=== PATIENT | male | born 1985 | race African-American/Black ===

== ENCOUNTER 2019-03-02 18:09 | Emergency (ER) | payer OTHER ==
[~2019-03-02] VITALS: Ht 165.1 cm; Wt 65.8 kg
[2019-03-02] MEDS ORDERED: NKM (18:28)
--- NOTE | 2019-03-02 19:14 | NUR ---
HAND-OFF: Report given to Aniceto TRAN.
[2019-03-02 19:37] VITALS: BP 124/66
--- NOTE | 2019-03-02 19:38 | NUR ---
ED Nurse Note: Patient walked in to ER c/o skin rash, right knee pain 02/20. AAO x4, VSS at this time.
--- NOTE | 2019-03-02 19:42 | Emergency Room Report ---
History of Present Illness General Chief Complaint: Skin Rash/Abscess Source: Patient Present Illness HPI 33 YO male presents to the ED c/o having several infected pimples or bug bites on his body, with most significant being just above his right knee. he reports itchy pimple-like bumps that have erythema and warmth. Pt. denies fevers or chills. Pt. reports lesions are tender 10/10 in severity. He denies pain with ROM or inability to range the right knee. Pt. denies fevers, chills or swollen tender lymph nodes. Denies lesions/rashes elsewhere on the body. Denies new medications or body washes or creams. Denies swelling of the lips, tongue , throat or airway. Denies wheezing, or shortness of breath. Denies recent travel , recent illness or ill contacts. denies blisters, oral lesions, or sloughing of the skin. Pt. reports he has been "couch" surfing lately. Denies joint pain , malaise or hx of recent STI. pt. denies immune compromise. Allergies: Coded Allergies: No Known Allergies (Unverified , 03/02/19) Patient History Past Medical History: see triage record Past Surgical History: none Pertinent Family History: none Reviewed Nursing Documentation: PMH: Agreed; PSxH: Agreed Nursing Documentation-PMH Past Medical History: No History, Except For Review of Systems All Other Systems: negative except mentioned in HPI Physical Exam Vital Signs Date Time Temp Pulse Resp B/P (MAP) Pulse Ox O2 Delivery O2 Flow Rate FiO2 03/02/19 18:25 98.2 84 16 124/66 (85) 98 Room Air Sp02 EP Interpretation: reviewed, normal General Appearance: no apparent distress, alert, GCS 15, non-toxic Head: normocephalic, atraumatic Eyes: bilateral eye normal inspection, bilateral eye PERRL ENT: hearing grossly normal, normal voice Neck: full range of motion Respiratory: chest non-tender, lungs clear, normal breath sounds, no respiratory distress, no accessory muscle use, no wheezing, speaking full sentences Cardiovascular #1: regular rate, rhythm Musculoskeletal: back normal, gait/station normal, normal range of motion, non- tender, other - local infected insect bite just overlying the upper lateral side of the right knee with tenderness, pustule and surrounding erythema. the erythema is not generalized over the right knee, no pain with ROM just with palpation of the erythematous lesion. mild localized swelling that does not appear to involve the knee joint, is not circumferential and spares the left anteriomedial, and posterior aspect of the knee. Neurologic: alert, oriented x3, responsive, motor strength/tone normal, sensory intact, normal gait, speech normal, grossly normal Psychiatric: judgement/insight normal Skin: normal color, warm/dry, well hydrated, other - pt. has a total of 4 pustules with surrounding erythema. the pustules are no larger than 0.5mm in size. the largest being overlying the proximal lateral aspect of the right knee. Lymphatic: no adenopathy Medical Decision Making PA Attestation Dr. Falk is my supervising Physician whom patient management has been discussed with. Diagnostic Impression: Primary Impression: Insect bites of multiple sites, infected Additional Impression: Skin pustule ER Course 33 YO male presents to the ED c/o having several infected pimples or bug bites on his body, with most significant being just above his right knee. he reports itchy pimple-like bumps that have erythema and warmth. Pt. denies fevers or chills. Pt. reports lesions are tender 10/10 in severity. He denies pain with ROM or inability to range the right knee. Pt. denies fevers, chills or swollen tender lymph nodes. Denies lesions/rashes elsewhere on the body. Denies new medications or body washes or creams. Denies swelling of the lips, tongue , throat or airway. Denies wheezing, or shortness of breath. Denies recent travel , recent illness or ill contacts. denies blisters, oral lesions, or sloughing of the skin. Pt. reports he has been "couch" surfing lately. Denies joint pain , malaise or hx of recent STI. pt. denies immune compromise. Ddx considered but are not limited to cellulitis, staph infection, viral exanthem, insect bites, septic joint just to name a few Vital signs: are WNL, pt. is afebrile H&PE are most consistent with little infected discrete insect bites questionable staph infection. physical exam does not indicate septic joint of the right knee ORDERS: none required at this time, the diagnosis is clinical ED INTERVENTIONS: -Keflex -Bactrim D/w pt. conservative treatment, and to follow up with a primary care provider. pt given a list of primary care clinics for follow up. d/w pt. to return to the ED with worsening or new symptoms specifically relating to the right knee or development of fevers. DISCHARGE: At this time pt. is stable for d/c to home. Will provide printed patient care instructions, and any necessary prescriptions. Care plan and follow up instructions have been discussed with the patient prior to discharge. Last Vital Signs Date Time Temp Pulse Resp B/P (MAP) Pulse Ox O2 Delivery O2 Flow Rate FiO2 03/02/19 19:37 98.2 16 124/66 98 Room Air 03/02/19 18:25 84 Status: improved Disposition: HOME, SELF-CARE Condition: Stable Scripts Mupirocin* (MUPIROCIN*) 22 Gm Oint...g. 1 APPLIC TOPIC THREE TIMES A DAY, #22 GM Prov: Yeni Foote 03/02/19 Trimethoprim/Sulfamethoxazole 160/800* (BACTRIM DS TABLET*) 1 Each Tablet 1 TAB ORAL TWICE A DAY for 7 Days, #14 TAB Prov: Yeni Foote 03/02/19 Cephalexin* (KEFLEX*) 500 Mg Capsule 500 MG ORAL EVERY 12 HOURS for 7 Days, #14 CAP 0 Refills Prov: Yeni Foote 03/02/19 Patient Instructions: Cellulitis, [id number], Staphylococcal Infection Additional Instructions: Take medications as directed. Follow up with a Primary Care Provider in 3-5 days for DERMATOLOGY REFERRAL , even if your symptoms have resolved. --Please review list of primary care clinics, if you do not already have a primary care provider Return sooner to ED if new symptoms occur, or current symptoms become worse. Keep a close eye on your right knee for swelling, pain with attempts to bend the knee and progressive redness and warmth. - Please note that this Emergency Department Report was dictated using [employer] adviser technology software, occasionally this can lead to erroneous entry secondary to interpretation by the dictation equipment. Yeni Foote Mar 02, 2019 19:42
[2019-03-02] MEDS ORDERED: BACTRIM DS TAB1 EAC1 ORAL (19:44)
[2019-03-02] MEDS ORDERED: CEPHALEXIN500 MG ORAL (19:44)
[2019-03-02] MEDS ORDERED: Bactrim-DS 1 tab ORAL ONE (19:45)
[2019-03-02] MEDS ORDERED: MUPIROCIN22 GM TOPIC (19:45)
[2019-03-02] MEDS ORDERED: Cephalexin 500mg cap ORAL ONE (19:45)
[2019-03-02 20:00] VITALS: BP 124/66
--- NOTE | 2019-03-02 22:57 | NUR ---
ED Nurse Note: Pt cleared by health care Provider for discharge. DC instructions/prescription was given and explained to pt and verbalized understanding of teachings. All medical deviecs such as ID band removed. Pt is AAO x4, ambulatory and left with all personal belongings.
== END 2019-03-02 20:00 | disposition home or self-care (01) ==
LOC: EMR 19:15
DX: T14.8XXA Other injury of unspecified body region, initial encounter (principal); L08.9 Local infection of the skin and subcutaneous tissue, unspecified; W57.XXXA Bitten or stung by nonvenomous insect and other nonvenomous arthropods, initial encounter; Y93.9 Activity, unspecified; Y92.9 Unspecified place or not applicable
CPT/HCPCS: 99282